=== PATIENT | male | born 1980 | race American Indian/Alaskan Native ===

== ENCOUNTER 2021-04-26 16:28 | Emergency (ER) | payer OTHER ==
[2021-04-26 16:45] VITALS: BP 223/135
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
== END 2021-04-26 18:08 | disposition home or self-care (01) ==
LOC: ED 16:28
DX: Z04.1 Encounter for examination and observation following transport accident (principal); V89.2XXA Person injured in unspecified motor-vehicle accident, traffic, initial encounter; Y93.89 Activity, other specified; Y92.89 Other specified places as the place of occurrence of the external cause; Y99.8 Other external cause status
CPT/HCPCS: 99282